=== PATIENT | male | born 1985 | race Caucasian/White ===

== ENCOUNTER 2025-03-23 00:05 | Emergency (ER) | payer BC, SELFPAY ==
--- OUTSIDE RECORDS SUMMARY | 2019-07-31 05:05 | XMS_ITS | Continuity of Care Document ---
Author Organization [facility] Address [address] [facility] [address] [place] [address] Phone Care Team Providers Care Tax Accounting Manager Name Role Phone Richard Reyes MD Unavailable Unavailable Allergies, Adverse Reactions, Alerts Substance Reaction Status Criticality No Known Allergies Active No Inform ation Medications Medication Instructions Dosage Effective Dates (start - stop) Status Comments Naprosyn 500 mg tablet take 1 tablet by oral route 2 times every day with food 500 MG - Active Procedures Procedure Date OFFICE/OUTPATIENT VISIT EST RADEX SPI LUMBOSAC 2/3 VIEWS OFFICE/OUTPATIENT VISIT EST OFFICE/OUTPATIENT VISIT EST RADEX SPI LUMBOSAC 2/3 VIEWS OFFICE/OUTPATIENT VISIT NEW Advance Directives Directive Yes / No Effective Date File Name No Information Encounters Encounter Description Practice Location Reason(s) For Visit Diagnoses Date Provider Providers Copied on Encounter OFFICE/OUTPAT IENT VISIT EST [facility] , [address], [facility], [place] tel:[phone] [facility] I am doing much better (chief complaint) Body mass index (BMI) 19.9 or less, adultLow back pain Apr-2 0- 0 Amy Ramos. [address] [address] [place], [place], [id number] . tel: [phone] OFFICE/OUTPAT IENT VISIT EST [facility] , [address] [facility] [address], [address], [place] tel:[phone] [facility] My back hurts alot (chief complaint) Low back painPersonal history of nicotine dependenceBody mass index (BMI) 19.9 or less, adult Jul- 0 Amy Ramos. [address] [address] [place], [id number] . tel: [phone] Referring Provider: Yoanna Kulkarni, [address] [place], [address]. tel:[phone] OFFICE/OUTPAT IENT VISIT [facility] , [address], [address], tel:[phone] [facility] I feel much better. I am doing great (chief complaint) Body mass index (BMI) 19.9 or less, adultPersonal history of nicotine dependenceLow back pain 9 Amy Ramos. [address] [facility] [place], [id number] . tel: [phone] OFFICE/OUTPAT IENT VISIT [facility] , [address], [address], [place] tel:[phone] [facility] My back hurts alot (chief complaint) Body mass index (BMI) 19.9 or less, adultPersonal history of nicotine dependenceLow back pain 9 Amy Ramos. [address] [facility] [place], [id number] . tel: [phone] Family History Family Member Type Diagnosis Age At Onset Father Problem (finding) Heart disease Mother Problem (finding) Diabetes mellitus Sister Problem (finding) Heart disease Mother Problem (finding) Heart disease Mother Problem asthma Payers Payer name Insurance type Covered libertarian ID Authoriza tion(s) Blue Access Choice PPO E2 OT [id number] Social History Type Description Quantity Date Captured Comments Alcohol Use Details Unknown Caffeine Use Details Unknown Tobacco Use Status Very heavy cigarette smoker (40+ cigs/day) Smoking Status Heavy tobacco smoker Smoking Tobacco Use Details Cigarette: Years Used 10 Cigarette: 2 Packs per day, Pack Year: Sex Male Vital Signs Date / Time: Height Weight BMI Pulse Rate Blood Pressure Temperature Respiratory Rate Body Surface Area Head Circumference Head Circ. Percentile Wt./Kingsley. Percentile BMI percentile Pulse Ox Inhaled Ox 11:19 AM 78.00 in 72.575 kg (160.00 lbs) 18.4 9 kg/m eter (2) Chief Complaint And Reason For Visit From encounter dated '07/31/2019 11:05'. I am doing much better (chief complaint) Reason For Referral Reason For Referral No Information Plan Of Treatment Date Type Action Status Goal Dietary education for weight gain completed Goal Dietary education for weight gain completed Goal Dietary education for weight gain completed Referral Ordered: RADEX SPI LUMBOSAC 2/3 VIEWS ordered Referral Ordered: RADEX SPI LUMBOSAC 2/3 VIEWS spine, lumbar ordered Patient Education Stopping Smoking: Care Instructions completed Patient Education Stopping Smoking: Care Instructions completed Patient Education Stopping Smoking: Care Instructions completed History Of Present Illness Encounter Date Complaint History Of Prese nt Illness I am doing much better My back hurts alot I feel much better. I am doing great Mr. Simms returns today now six weeks after I saw him last for low back pain. At that time I started an anti-inflammatory and physical therapy. He reports he is doing quite well with almost complete resolution of his back symptoms. He is overall very happy with his current condition and does not wish to pursue any further treatment options. My back hurts alot Functional Status Date Functional Assessmen t Pain Score 0/10 Instructions Date Instruction Additional Infor mation Dietary education for weight gai n Related to Body mass index (BMI) 19.9 or less, adult Take medication as directed. Rel ated to Low back pain Continue home exercise program. Related to Low back pain At this time, I feel the patient would benefit from a course of non-operative management. I will start the patient on Naprosyn 500mg p.o. b.i.d. for the next three weeks. I will also start the patient in physical therapy to work on range of motion and strengthening of the lumbar spine and modalities as seen fit by the physical therapist. I discussed with the patient the importance of continuing home therapy once formal therapy has ended. I would like to see the patient again in six weeks. All the patient's questions were answered. Related to Low back pain Dietary education for weight gai n Related to Body mass index (BMI) 19.9 or less, adult Take medication as directed. Rel ated to Low back pain Continue home exercise program. Related to Low back pain At this time the josé smith is doing quite well with almost complete resolution of their back pain. I will release the patient from my care. I told the patient for the mild aches and pains, Tylenol, Ibuprofen and Aleve work great. For the more consistent pain, the patient should try taking an anti-inflammatory schedule for two to three days. I also discussed with the patient the importance of continuing the home exercises provided by the physical therapist. I will see the patient again on an as needed basis. All the patient's questions were answered. Related to Low back pain Dietary education for weight gai n Related to Body mass index (BMI) 19.9 or less, adult Continue home exercise program. Related to Low back pain Discussed treatment options Rela anette to Low back pain At this time, I feel the patient would benefit from a course of non-operative management. I will start the patient on Naprosyn 500mg p.o. b.i.d. for the next three weeks. I will also start the patient in physical therapy to work on range of motion and strengthening of the lumbar spine and modalities as seen fit by the physical therapist. I discussed with the patient the importance of continuing home therapy once formal therapy has ended. I would like to see the patient again in six weeks. All the patient's questions were answered. Related to Low back pain Weight gain advised Related to B christie mass index (BMI) 19.9 or less, adult Take medication as directed. Rel ated to Low back pain Continue home exercise program. Related to Low back pain Assessments Type Assessment Date assessment Body mass index (BMI) 19.9 or le ss, adult assessment Low back pain Patient Care Teams Name Effective Dates (start - stop) Status Members No Information
--- NOTE | ~2025-03-23 | CT_ITS ---
CT ABDOMEN AND PELVIS WITHOUT CONTRAST Clinical History: poss kidney stone Comparison: None Technique: Unenhanced axial images lung bases to symphysis pubis Coronal, sagittal reformats CT images acquired with automatic exposure control for dose reduction DLP: 225 mGy-cm Findings: Without intravenous contrast, sensitivity for detecting visceral parenchymal abnormalities decreased. Lung bases: Clear. Visualized heart and pericardium: Unremarkable. Liver: Unremarkable. Gallbladder: Unremarkable. Spleen: Unremarkable. Pancreas: Unremarkable. Adrenal glands: Unremarkable. Kidneys: Right kidney- No hydronephrosis. Possible tiny stone. Left kidney- hydronephrosis. Tiny stone. 6 mm stone proximal ureter Distal esophagus/stomach: Small hiatal hernia. Small bowel loops: Normal caliber and wall thickness. Colon: Normal caliber and wall thickness. Normal RLQ appendix. Nodes: No enlarged nodes. Peritoneum: No ascites. No free intraperitoneal air. Urinary bladder: Unremarkable. Prostate: Unremarkable. Bones: No acute bony abnormality. Soft tissues: Unremarkable. Unopacified abdominal aorta: No aneurysmal dilatation. IMPRESSION: 1. 6 mm stone proximal left ureter with consequent hydronephrosis. 2. Tiny bilateral nephrolithiasis. Reviewed, dictated and finalized at location R. ILL TALLY CLERK
[2025-03-23 00:07] VITALS: BP 138/70; PULSE 71; RESP 18; TEMP 36.7; O2SAT 100
--- NOTE | 2025-03-23 00:25 | ED.ABDPAIN ---
HPI - Abdominal Pain General Chief Complaint: Abdominal Pain Stated Complaint: L abd/L flank/L testicle pain Time Seen by Provider: 03/23/25 00:24 Source: patient Mode of arrival: ambulatory Limitations: no limitations History of Present Illness HPI narrative: This is a 39-year-old male with no significant past medical history who presents to the ED for abdominal pain and left testicular pain. Patient states that he went to lay down this evening when he had onset of the left testicle plan that began to radiate to his left abdomen. He has had nausea and a couple episodes of emesis. He has never had pain like this before. No testicular problems that he is aware of. No dysuria or hematuria. Related Data Allergies Allergy/AdvReac Type Severity Reaction Status Date / Time No Known Allergies Allergy Verified 03/23/25 00:07 Review of Systems Review of Systems: Gen.: Denies fevers or chills Eyes: Denies eye pain or visual change ENT: Denies congestion Respiratory: Denies shortness of breath or cough CV: Denies chest pain or palpitations GI: As per HPI denies burning, urgency, frequency or hematuria Musculoskeletal: Denies back pain or muscle pain Neuro: Denies numbness, tingling, weakness or focal weakness Skin: Denies rash Except as documented, all other systems reviewed and negative Exam Narrative: APPEARANCE: No acute distress, nontoxic, resting in bed EYES: EOMI HEENT: Normocephalic, atraumatic, OMM RESPIRATORY: No respiratory distress Clear to auscultation bilaterally with no rhonchi wheezing or rales. CARDIOVASCULAR: Regular rate and rhythm without murmurs rubs or gallops. ABDOMINAL: Soft, nontender, nondistended, no rebound or guarding : Left testicle is not swollen, no tenderness. There is some tenderness superior to the left testicle. MUSCULOSKELETAl: Moves all extremities. No clubbing, cyanosis or edema. NEURO: Awake and alert. Following commands, speech normal, no focal deficits SKIN:: Warm, dry. 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 present Course Vital Signs Vital signs: Vital Signs Temperature 98.0 F 03/23/25 00:07 Pulse Rate 71 03/23/25 00:07 Respiratory Rate 18 03/23/25 00:07 Blood Pressure 138/70 03/23/25 00:07 Pulse Oximetry 100 03/23/25 00:07 Oxygen Delivery Room Air 03/23/25 00:07 Temperature 98.0 F 03/23/25 00:07 Pulse Rate 72 03/23/25 03:58 Respiratory Rate 18 03/23/25 03:58 Blood Pressure 124/81 03/23/25 03:58 Pulse Oximetry 99 03/23/25 03:58 Oxygen Delivery Room Air 03/23/25 00:07 [facility] Narrative Medical decision making narrative: 39-year-old male Presenting for flank pain and testicular pain. On initial evaluation patient was in mild distress afebrile, hemodynamic stable. Differentials include but are not limited to: Ureterolithiasis, pyelonephritis, MSK pain, constipation, obstruction, PNA, Cancer, testicular torsion, epididymitis Notable exam findings: Tenderness superior to the left testicle. CVA tenderness on the left. I personally reviewed the patient's lab result. Notable lab findings: Leukocytosis at 13.4, CMP without significant abnormalities. UA consistent with microscopic hematuria. CT abdomen/pelvis did show a 6 mm obstructive stone in the proximal left ureter. Patient was given Toradol and Zofran with improvement of symptoms. He will be given a prescription for Toradol, Flomax, Zofran. He was given a referral to Urology for further evaluation and management. Patient was agreeable to this plan. Given strict return precautions. Differential Diagnosis Differential Diagnosis: Ureterolithiasis, pyelonephritis, MSK pain, constipation, obstruction, PNA, Cancer, testicular torsion, epididymitis Lab Data [facility] Lab Attestation statement: I personally reviewed the patient's lab results. 03/23/25 02:28 03/23/25 02:28 Labs: Lab Results 03/23/25 03/23/25 Range/Units 00:20 02:28 WBC 13.4 H (4.5-10.0) K/mm3 RBC 4.02 L (4.6-6.20) M/mm3 Hgb 13.4 L (14.0-18.0) g/dL Hct 38.1 L (42.0-52.0) % MCV 94.8 (80-100) fl MCH 33.3 (26-34) pg MCHC 35.2 (32-36) g/dl RDW 11.9 (11.5-14.5) % Plt Count 270 (150-375) k/mm3 MPV 9.9 (7.4-10.4) fl Immature Gran % (Auto) 0.3 (0-0.5) % Neut % (Auto) 86.9 H (45.5-73.1) % Lymph % (Auto) 8.7 L (18.3-44.2) % [place] % (Auto) 3.5 (2.6-8.5) % Eos % (Auto) 0.1 (0-4.4) % Baso % (Auto) 0.5 (0.2-1.2) % Lymph # (Auto) 1.16 (0.9-3.2) K/mm3 [place] # (Auto) 0.5 (0.1-0.6) K/mm3 Eos # (Auto) 0.0 (0-0.3) K/mm3 Baso # (Auto) 0.1 (0.0-0.1) K/mm3 Abs Immat Gran (auto) 0.04 H (0.00-0.031) K/mm3 Absolute Neuts (auto) 11.6 H (1.3-6.7) K/mm3 Absolute Nucleated RBC 0.000 (0.0-0.012) K/mm3 Nucleated RBC % 0.0 (0.0-0.2) % Sodium 135 L (137-145) mmol/L Potassium 4.1 (3.4-5.0) mmol/L Chloride 101 (98-107) mmol/L Carbon Dioxide 28 (22-30) mmol/L Anion Gap 6 (4-12) mmol/L BUN 18 (9-20) mg/dL Creatinine 1.29 (0.7-1.3) mg/dL Estim Creat Clear Calc 75 ml/min Estimated GFR > 60 (59 - ) Glucose 140 H (65-110) mg/dL Calcium 9.3 (8.4-10.2) mg/dL Urine Color Yellow (Yellow) Urine Appearance Clear (Clear) Urine pH 5.5 (5.0-9.0) Ur Specific Whiteside 1.022 (1.001-1.035) Urine Protein Trace (Negative) mg/dL Urine Glucose (UA) Negative (Negative) mg/dL Urine Ketones Trace H (Negative) mg/dL Ur Blood (Man) 2+ H (Negative) Urine Nitrate Negative (Negative) Urine Bilirubin Negative (Negative) Urine Urobilinogen 0.2 (<2.0) mg/dL Leukocyte Esterase Rfl Negative (Negative) JANAE/UL Urine RBC 51-100 H (0-2) /hpf Urine WBC 0-5 (0-3) /hpf Ur Squamous Epith Cells None seen (Few) /hpf Urine Bacteria None seen /hpf Urine Casts 0-2 Imaging Data Radiologist's impression: ITS Impressions Abdomen/Pelvis CT 03/23/25 07:25 IMPRESSION: 1. 6 mm stone proximal left ureter with consequent hydronephrosis. 2. Tiny bilateral nephrolithiasis. Discharge Plan Discharge Clinical Impression: Ureterolithiasis Patient Disposition: Home Condition: Stable Instructions: Antibiotic Form, Kidney Stones (ED) Additional Instructions: CT scan showed a 6 mm kidney stone which may be able to pass. Take Flomax, Toradol, Zofran as prescribed. Follow-up with urology in the next week for re-evaluation. Return to the ED for any new or worsening symptoms. Patient Language: Latvian Prescriptions: New tamsulosin 0.4 mg capsule 0.4 mg PO HS Qty: 30 0RF ketorolac 10 mg tablet 10 mg PO Q8H PRN (Reason: pain) Qty: 12 0RF Rx Instructions: maximum total duration of 5 days from all oral, intranasal, or parenteral formulations ondansetron 4 mg tablet,disintegrating 4 mg PO Q8H PRN (Reason: nausea and vomiting) Qty: 12 0RF Follow-up/Referrals: PHYSICIAN NOT ON STAFF,NONSTAFF [Non-Staff] Tee Aguila MD [Physician, Urology] Stand Alone Forms: Work/School Release IP
[2025-03-23] MEDS: ONDANSETRON HCL ODT 4 MG TABLET PO (00:30)
[2025-03-23 00:34] LABS: Add Urine Microscopic? YES; Appearance Urine Clear (Clear); Glucose Urine UA Negative (Negative); Leukocyte Esterase Ur Negative LEU/UL (Negative); Nitrate Urine Negative (Negative); Non Pathogenic Casts 0-2; Specific Grav Ur 1.022 (1.001-1.035)
[2025-03-23] MEDS: KETOROLAC 30 MG/ML VIAL (*BKC) IV PUSH (02:27)
[2025-03-23] MEDS: SODIUM CHLORIDE 0.9% IV 1,000 ML 999 ML IV CONT (02:27)
[2025-03-23] MEDS: ONDANSETRON INJ 4 MG/2 ML VIAL IV PUSH (02:27)
--- OUTSIDE RECORDS SUMMARY | 2025-03-23 02:28 | XMS_ITS | Encounter Summary ---
Author Organization [facility] Address [address] [place] [address] Care Team Providers Care Fast Food Services Manager Name Role Phone Unavailable Primary Care Provider Unavailabl e Encounter Details Date Type Department Care Team (Late st Contact Info) Description 04/10/2006 Outpatient Historical [facility] [place] [facility] [place] [facility] [address] [place] [address] Calvin Pro MD [address] [facility] [address] [place] [address] Social History Tobacco Use Types Packs/Day Years Used Date Smoking Tobacco: Never Assessed Sex and Gender Information Value Date Recorded Sex Assigned at Not on file Legal Sex Male 3:33 AM LATEX [employer] WORK[employer] Gender Identity Not on file Sexual Orientation Not on file documented as of this encounter Plan of Treatment Not on file documented as of this encounter Visit Diagnoses Not on filedocumented in this encounter
--- OUTSIDE RECORDS SUMMARY | 2025-03-23 02:28 | XMS_ITS | Clinical Summary ---
Author Organization [facility] Address [address] [place] [address] Care Team Providers Care Survey Technologist Name Role Phone Wesley Carreno MD Primary Care Provider [phone] Allergies No known active allergies Medications mupirocin (BACTROBAN) 2 % ointmentIndicat ions:Laceration of right great toe without foreign body present or damage to nail, initial encounter Apply topically 3 (three) times a day 22 g 5 Active Active Problems Problem Noted Date Diagnosed Date Physical exam, annual 06/22/2024 Assessment & Plan (06/22/2024 1:02 PM CDT): Preventative exam; reviewed screenings and vaccinations. No family history of colorectal cancer, plan for screening colonoscopy at age 45. Elevated alpha fetoprotein 06/22/2024 Assessment & Plan (06/22/2024 1:01 PM CDT): History of elevated alpha fetoprotein, will check today with labs. Discussed with patient that he will need to follow-up with heme/Onc. Hemochromatosis is a risk factor for hepatocellular carcinoma. Encounter to establish care 06/22/2022 Assessment & Plan (06/22/2022 7:55 PM CDT): Reviewed recommended preventive screenings, vaccinations and complete medical, surgical and family history. Recommend smoking cessation. Screening c-scope recommended at age 45. Hereditary hemochromatosis 06/22/2022 Assessment & Plan (06/22/2024 1:02 PM CDT): Previously following with Oncology, completing phlebotomy every 3 months with ferritin goal of 50. He has not had any recent follow-up with his oncologist. Has continued donating blood every 6 months, last donation January 30, 2024. Scheduled again next month. Will check CBC, ferritin and iron profile today. Discussed continued management with oncology encouraged patient to schedule appointment. Assessment & Plan (06/22/2022 7:54 PM CDT): Reviewed labwork brought into office today with patient (scanned to chart under media). Referral placed to hematology. Electronic cigarette use 06/22/2022 Assessment & Plan (06/22/2024 12:57 PM CDT): Encouraged complete smoking cessation. Assessment & Plan (06/22/2022 7:52 PM CDT): Encourage cessation. Adult BMI <19 kg/sq m 06/22/2022 Encounters Date Type Department Care Team Description 12/25/2024 Telephone [facility] [address] [place] [address] Wesley Carreno MD Medical Question/Miscellaneo us 12/25/2024 [facility] ED Outreach [facility] Accountable Care Organization [address] [place] [id number] Latosha Marshall MA 12/22/2024 11:31 AM CDT - 12/22/2024 2:59 PM CDT Emergency [facility] Emergency Department [address] [place] [address] Discharge Disposition: Left without being seen 12/22/2024 10:50 AM CDT - 12/22/2024 11:59 PM CDT Hospital Encounter [facility] Emergency, Room R Discharge Disposition: Discharge to home or self care from Last 3 Months Immunizations Immunization Administration Dates Next Due DT 12/29/1990, 9,1985,1985, 6 Influenza, Unspecified 08/31/2024(Deferr ed: Patient Refused),06/22/2024(Deferred: Patient Refused),01/11/2024(Deferred: Patient Refused),12/12/2023(Deferred: Patient Refused),01/10/2023(Deferred: Patient Refused),06/22/2022(Deferred: Patient Refused),01/10/2022(Deferred: Patient Refused),01/10/2021(Deferred: Patient Refused) MMR 12/29/1990,10/11/1986 OPV 12/29/1990, 9,1985,1985, 6 Tdap 02/02/2019 Family History Medical History Relation Name Comments Heart disease Father Diabetes Mother Breast cancer Sister Relation Name Status Comments Father Alive Mother Alive Sister Social History Tobacco Use Types Packs/Day Years Used Date Smoking Tobacco: Never Smokeless Tobacco: Never Tobacco Cessation:Counseling Given: Not Answered PHQ-2 Answer Date Recorded PHQ-2 Total Score (If total score is 3 or more points, staff should administer the PHQ-9) 0 08/31/2024 Personal Safety Answer Date Recorded Have you ever been in or are you currently in a harmful physical or emotional relationship or is someone making you feel afraid or unsafe? 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 Gender Identity Not on file Sexual Orientation Not on file Last Filed Vital Signs Vital Sign Reading Time Taken Comments Blood Pressure 99/49 12/22/2024 12:00 PM CDT Pulse 64 12/22/2024 12:00 PM CDT Temperature 36.3 C (97.3 F) 12/22/2024 12:00 PM CDT Respiratory Rate 18 12/22/2024 12:00 PM CDT Oxygen Saturation 100% 12/22/2024 12:00 PM CDT Inhaled Oxygen Concentration - - Weight 77.1 kg (170 lb) 12/22/2024 11:59 AM CDT Height 198.1 cm (6' 6) 12/22/2024 11:59 AM CDT Body Mass Index 19.65 12/22/2024 11:59 AM CDT Plan of Treatment Health Maintenance Due Date Last Done Comments Hepatitis C Screening 1985 Varicella Vaccines (1 of 2 - 13+ 2-dose series) 1998 Hepatitis B Screening 2003 HPV Vaccines (1 - 3-dose SCDM series) 2012 Influenza Vaccine (#1) 2024 Regular Well Visit/Exam 18-64 06/22/2025 06/22/2024 Depression Screening 08/31/2025 08/31/2024, 06/22/2024, 06/22/2022 DTaP/Tdap/Td Vaccine (7 - Td or Tdap) 02/02/2029 02/02/2019, 12/29/1990, 02/11/1989, Additional history exists Pneumococcal vaccine <65 Aged Out No longer eligible based on patient's age to complete this topic Procedures Procedure Name Priority Date/Time Associated Diagnosis Comments XR RADIUS ULNA LEFT 2 VIEWS ED 12/22/2024 12:20 PM CDT XR HAND LEFT 3 OR MORE VIEWS ED 12/22/2024 12:20 PM CDT XR WRIST LEFT 3 OR MORE VIEWS ED 12/22/2024 12:20 PM CDT from Last 3 Months Results * XR Radius Ulna Left 2 Views (12/22/2024 12:20 PM CDT) Anatomical Region Laterality Modality Upper Extremities, Forearm Left Compu anette Radiography 12/22/2024 4:40 PM CDT Impressions 12/22/2024 4:40 PM CDT No acute abnormality. Electronically signed by: Trent Barba M.D. Narrative 12/22/2024 4:40 PM CDT EXAMINATION: XR WRIST LEFT 3 OR MORE VIEWS, XR RADIUS ULNA LEFT 2 VIEWS, XR HAND LEFT 3 OR MORE VIEWS DATE: 12/22/2024 12:05 HISTORY: Pain, Upper Extremity Injury or Trauma FINDINGS: There is no fracture, dislocation or abnormal bone destruction. Procedure Note Trent Barba MD - 12/22/2024 EXAMINATION: XR WRIST LEFT 3 OR MORE VIEWS, XR RADIUS ULNA LEFT 2 VIEWS, XR HAND LEFT 3 OR MORE VIEWS DATE: 12/22/2024 12:05 HISTORY: Pain, Upper Extremity Injury or Trauma FINDINGS: There is no fracture, dislocation or abnormal bone destruction. IMPRESSION: No acute abnormality. Electronically signed by: Trent Barba M.D. Enid Santana MD [facility] XR PROCEDURES Final Result * XR Hand Left 3 or More Views (12/22/2024 12:20 PM CDT) Anatomical Region Laterality Modality Upper Extremities, Hand Left Computed Radiography 12/22/2024 4:40 PM CDT Impressions 12/22/2024 4:40 PM CDT No acute abnormality. Electronically signed by: Trent Barba M.D. Narrative 12/22/2024 4:40 PM CDT EXAMINATION: XR WRIST LEFT 3 OR MORE VIEWS, XR RADIUS ULNA LEFT 2 VIEWS, XR HAND LEFT 3 OR MORE VIEWS DATE: 12/22/2024 12:05 HISTORY: Pain, Upper Extremity Injury or Trauma FINDINGS: There is no fracture, dislocation or abnormal bone destruction. Procedure Note Trent Barba MD - 12/22/2024 EXAMINATION: XR WRIST LEFT 3 OR MORE VIEWS, XR RADIUS ULNA LEFT 2 VIEWS, XR HAND LEFT 3 OR MORE VIEWS DATE: 12/22/2024 12:05 HISTORY: Pain, Upper Extremity Injury or Trauma FINDINGS: There is no fracture, dislocation or abnormal bone destruction. IMPRESSION: No acute abnormality. Electronically signed by: Trent Barba M.D. Enid Santana MD [facility] [place] XR PROCEDURES Final Result * XR Wrist Left 3 or More Views (12/22/2024 12:20 PM CDT) Anatomical Region Laterality Modality Upper Extremities, Wrist Left Compute d Radiography 12/22/2024 4:40 PM CDT Impressions 12/22/2024 4:40 PM CDT No acute abnormality. Electronically signed by: Trent Barba M.D. Narrative 12/22/2024 4:40 PM CDT EXAMINATION: XR WRIST LEFT 3 OR MORE VIEWS, XR RADIUS ULNA LEFT 2 VIEWS, XR HAND LEFT 3 OR MORE VIEWS DATE: 12/22/2024 12:05 HISTORY: Pain, Upper Extremity Injury or Trauma FINDINGS: There is no fracture, dislocation or abnormal bone destruction. Procedure Note Trent Barba MD - 12/22/2024 EXAMINATION: XR WRIST LEFT 3 OR MORE VIEWS, XR RADIUS ULNA LEFT 2 VIEWS, XR HAND LEFT 3 OR MORE VIEWS DATE: 12/22/2024 12:05 HISTORY: Pain, Upper Extremity Injury or Trauma FINDINGS: There is no fracture, dislocation or abnormal bone destruction. IMPRESSION: No acute abnormality. Electronically signed by: Trent Barba M.D. Enid Santana MD IMG XR PROCEDURES Final Result from Last 3 Months Insurance ANTHEM ACCESS ANTHEM ACCESS Care Teams Survey Technologist Relationship Specialty Start Date End Date Wesley Carreno MD [address] [place] [id number] PCP - General Family Medicine 06/22/24
--- OUTSIDE RECORDS SUMMARY | 2025-03-23 02:28 | XMS_ITS | Clinical Summary ---
Author Organization [facility] Address [address] 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 This disclosure is being madepursuant to the Care Everywhere program and may not contain all information available regarding this patient. Last updated 17.[facility] Allergies No known active allergies Medications * Be aware that medications may not be up to date on this document. Alwaysverify current medications with the patient. methylPREDNISol one (MEDROL DOSEPAK) 4 MG tablet Take by mouth as directed 1 Each 02/05/2020 Active cyclobenzaprine (FLEXERIL) 10 MG tablet Take 1 tablet by mouth 3 times daily as needed for Muscle Spasms 30 tablet 1 02/05/2020 Active Active Problems Problem Noted Date Diagnosed Date Tobacco use disorder 02/03/2019 Kidney stone 02/02/2019 Immunizations Immunization Administration Dates Next Due TDAP (7yrs+) 02/02/2019 Family History Medical History Relation Name Comments CAD (Coronary Artery Disease) Father Hypertension Father ADD/ADHD Mother Asthma Mother Diabetes - Type 2 Mother Cancer - Prostate Paternal Grandfather Cancer - Lung Paternal Grandmother smoker Relation Name Status Comments Father Alive Mother Alive Paternal Grandfather Paternal Grandmother Social History Tobacco Use Types Packs/Day Years Used Date Smoking Tobacco: Every Day Cigarettes 1.5 20.9 Started: 2004 Smokeless Tobacco: Never Tobacco Cessation:Ready to Q uit: No; Counseling Given: Yes Alcohol Use Standard Drinks/Week Comments Yes 0 (1 standard drink = 0.6 oz pur e alcohol) socially AUDIT-C Answer Date Recorded Frequency of Alcohol Consumption Monthly or less 02/02/2019 Average Number of Drinks Not on file 019 Frequency of Binge Drinking Not on file 01/11 Sex and Gender Information Value Date Recorded Sex Assigned at Not on file 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 Gender Identity Not on file Sexual Orientation Not on file Last Filed Vital Signs Vital Sign Reading Time Taken Comments Blood Pressure 104/60 02/05/2020 11:52 AM CDT Pulse 100 02/05/2020 11:52 AM CDT Temperature 36.7 C (98.1 F) 02/05/2020 11:52 AM CDT Respiratory Rate 20 02/02/2019 9:08 AM CDT Oxygen Saturation 96% 02/05/2020 11:52 AM CDT Inhaled Oxygen Concentration - - Weight 76.2 kg (168 lb) 02/05/2020 11:52 AM CDT Height 198.1 cm (6' 6) 02/05/2020 11:52 AM CDT Body Mass Index 19.41 02/05/2020 11:52 AM CDT Plan of Treatment Health Maintenance Due Date Last Done Comments HIV SCREENING 2000 HEPATITIS C SCREENING 04/14/2003 HEPATITIS B VACCINE (1 of 3 - 19+ 3-dose series) 2004 PNEUMOCOCCAL VACCINE (1 of 2 - PCV) 2004 HPV VACCINE (1 - 3-dose SCDM series) 2012 DEPRESSION SCREENING 04/12/2024 COVID-19 VACCINE (1 - 2024-2 6 season) 2024 INFLUENZA VACCINE (#1) 2024 DTAP/TDAP/TD VACCINES (2 - T d or Tdap) 02/02/2029 02/02/2019 ZOSTER VACCINE (1 of 2) 2035 HIB VACCINE Aged Out No longer eligi ble based on patient's age to complete this topic MENINGOCOCCAL (Group B) VACC INE SHARED DECISION-MAKING Aged Out No longer eligibl e based on patient's age to complete this topic MENINGOCOCCAL GROUPS A/C/Y/W VACCINE Aged Out No longer eligible b ased on patient's age to complete this topic Insurance [facility] Care Teams Seed Mill Superintendent Relationship Specialty Start Date End Date Yoanna Kulkarni MD [address] [place] [address] PCP - General Internal Medicine 02/02/19
--- OUTSIDE RECORDS SUMMARY | 2025-03-23 02:28 | XMS_ITS | Clinical Summary ---
Author Organization [facility] Address [address] [place] [address] Care Team Providers Care Manager Trainee Name Role Phone Unavailable Primary Care Provider Unavailabl e Allergies No known active allergies Medications ibuprofen (MOTRIN) 600 mg tablet Take 1 Tablet (600 mg) by mouth every 6 hours as needed for Pain, Mild. 40 Tablet 12/22/2024 Active Encounters Date Type Department Care Team Description 03/20/2025 External Device Data [facility] ABSTRACTION Provider, Abstract 03/20/2025 External Device Data [facility] ABSTRACTION Provider, Abstract 03/20/2025 External Device Data [facility] ABSTRACTION Provider, Abstract 02/20/2025 External Device Data [facility] ABSTRACTION Provider, Abstract 02/20/2025 External Device Data [facility] ABSTRACTION Provider, Abstract 02/14/2025 External Device Data [facility] ABSTRACTION Provider, Abstract 01/31/2025 External Device Data [facility] ABSTRACTION Provider, Abstract 01/23/2025 External Device Data [facility] ABSTRACTION Provider, Abstract 01/23/2025 External Device Data [facility] ABSTRACTION Provider, Abstract 12/27/2024 Telephone [facility] [employer] [id number] [place] [address] [address] [place] [address] Jenna Gupta Work Comp 12/27/2024 External Device Data [facility] ABSTRACTION Provider, Abstract 12/26/2024 External Device Data [facility] ABSTRACTION Provider, Abstract 12/26/2024 External Device Data [facility] ABSTRACTION Provider, Abstract 12/22/2024 3:27 PM CDT - 12/22/2024 5:26 PM CDT Emergency [facility] Services [address] [facility] [address] [place] [address] Duy Chowdhury MD Contusion of left forearm, initial encounter (Primary Dx) Discharge Disposition: Home or Self Care 12/22/2024 2:07 PM CDT - 12/22/2024 2:57 PM CDT Emergency [facility] [address] [place] [address] Discharge Disposition: Left without being seen 12/22/2024 Travel from Last 3 Months Social History Tobacco Use Types Packs/Day Years Used Date Smoking Tobacco: Every Day Cigarettes Tobacco Cessation:Ready to Q uit: Not Asked; Counseling Given: Not Answered Feeling Safe Answer Date Recorded Are you in a relationship wi th someone who hurts you emotionally and/or physically? 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 Gender Identity Not on file Sexual Orientation Not on file Last Filed Vital Signs Vital Sign Reading Time Taken Comments Blood Pressure 141/83 12/22/2024 3:22 PM CDT Pulse 80 12/22/2024 3:22 PM CDT Temperature 37.5 C (99.5 F) 12/22/2024 3:22 PM CDT Respiratory Rate 16 12/22/2024 3:22 PM CDT Oxygen Saturation 99% 12/22/2024 3:22 PM CDT Inhaled Oxygen Concentration - - Weight 77.1 kg (170 lb) 12/22/2024 3:22 PM CDT Height 198.1 cm (6' 6) 12/22/2024 3:22 PM CDT Body Mass Index 19.65 12/22/2024 3:22 PM CDT Plan of Treatment Health Maintenance Due Date Last Done Comments HEPATITIS B VACCINES (1 of 3 - 19+ 3-dose series) 2004 INFLUENZA VACCINE (#1) 2024 DTAP/TDAP/TD VACCINES (7 - T d or Tdap) 02/02/2029 02/02/2019, 12/29/1990, 02/11/1989, Additional history exists HPV VACCINES (No Doses Required) Completed Procedures Procedure Name Priority Date/Time Associated Diagnosis Comments XR FOREARM 2 VW LEFT Stat 12/22/2024 4:47 PM CDT XR WRIST 3+ VW LEFT Stat 12/22/2024 3 :47 PM CDT from Last 3 Months Results * XR FOREARM 2 VW LEFT (12/22/2024 4:47 PM CDT) Anatomical Region Laterality Modality Upper Extremity Computed Radiogr aphy 12/22/2024 4:49 PM CDT Impressions 12/22/2024 4:54 PM CDT IMPRESSION: No acute osseous injury. DICTATION LOCATION: Location 4 Narrative 12/22/2024 4:54 PM CDT XR FOREARM 2 VW LEFT DATE: 12/22/2024 4:47 PM HISTORY: Injury COMPARISON: None FINDINGS: There is no evidence of acute fracture or dislocation. No concerning osseous lesions are noted. Procedure Note Cara Michel MD - 12/22/2024 XR FOREARM 2 VW LEFT DATE: 12/22/2024 4:47 PM HISTORY: Injury COMPARISON: None FINDINGS: There is no evidence of acute fracture or dislocation. No concerning osseous lesions are noted. IMPRESSION: No acute osseous injury. DICTATION LOCATION: Location 4 Duy Chowdhury MD DIAGNOSTIC IMAGING ORDERABLES Fi nal Result * XR WRIST 3+ VW LEFT (12/22/2024 3:47 PM CDT) Anatomical Region Laterality Modality Wrist / Hand Computed Radiogr aphy 12/22/2024 3:49 PM CDT Impressions 12/22/2024 3:53 PM CDT IMPRESSION: No acute osseous injury. DICTATION LOCATION: Location 4 Narrative 12/22/2024 3:53 PM CDT XR WRIST 3+ VW LEFT DATE: 12/22/2024 3:47 PM HISTORY: Injury COMPARISON: None FINDINGS: There is no evidence of acute fracture or dislocation. No concerning osseous lesions are noted. Procedure Note Cara Michel MD - 12/22/2024 XR WRIST 3+ VW LEFT DATE: 12/22/2024 3:47 PM HISTORY: Injury COMPARISON: None FINDINGS: There is no evidence of acute fracture or dislocation. No concerning osseous lesions are noted. IMPRESSION: No acute osseous injury. DICTATION LOCATION: Location 4 Michelle Srinivasan NP DIAGNOSTIC IMAGING ORDERABL ES Final Result from Last 3 Months Insurance [facility] OUT OF [place] [address]
[2025-03-23 02:34] LABS: Hematocrit 38.1 % (42.0-52.0); Hemoglobin 13.4 g/dL (14.0-18.0); Immature Granulocyte Percent A 0.3 % (0-0.5); Lymphocytes Absolute Auto 1.16 K/mm3 (0.9-3.2); Mean Corpuscular HGB Conc 35.2 g/dl (32-36); Mean Corpuscular Hemoglobin 33.3 pg (26-34); Mean Corpuscular Volume 94.8 fl (80-100); Nucleated Red Blood Cells Absolute Auto 0.000 K/mm3 (0.0-0.012); Nucleated Red Blood Cells Perc 0.0 % (0.0-0.2); Platelet Count Result 270 k/mm3 (150-375); Red Blood Count 4.02 M/mm3 (4.6-6.20); White Blood Count 13.4 K/mm3 (4.5-10.0)
[2025-03-23 02:46] LABS: Anion Gap 6 mmol/L (4-12); Blood Urea Nitrogen 18 mg/dL (9-20); Calcium 9.3 mg/dL (8.4-10.2); Carbon Dioxide 28 mmol/L (22-30); Chloride 101 mmol/L (98-107); Estimated CRCL calculation 75 ml/min; Estimated Glomerular Filt Rate > 60; Glucose 140 mg/dL (65-110); Potassium 4.1 mmol/L (3.4-5.0); Sodium 135 mmol/L (137-145)
[2025-03-23] MEDS: HYDROcodone/acetaminophen (*CRX) 5-325 MG TABLET 1 TAB PO (03:54)
[2025-03-23 03:58] VITALS: BP 124/81; PULSE 72; RESP 18; O2SAT 99
== END 2025-03-23 03:59 | disposition home or self-care (01) ==
LOC: ANHED 02:27
PROVIDERS: Emergency Provider Student in an Organized Health Care Education/Training Program
DX: N13.2 Hydronephrosis with renal and ureteral calculous obstruction (principal)
CPT/HCPCS: 36415; 74176; 80048; 81001; 85025; 96361; 96374; 96375; 99284; A9270; J1885; J2405; J7030